=== PATIENT | female | born 1960 | race Caucasian/White ===

== ENCOUNTER 2017-06-05 19:40 | Emergency (ER) | payer OTHER ==
[~2017-06-05] VITALS: Ht 167.6 cm; Wt 132.0 kg
[2017-06-05 20:06] VITALS: BP 168/82; PULSE 69; RESP 16; TEMP 98.1; O2SAT 96
[2017-06-05] MEDS ORDERED: DILT30TA PO (20:28)
[2017-06-05] MEDS ORDERED: ROSU1TAB6 PO (20:28)
[2017-06-05] MEDS ORDERED: LORA0.5T PO (20:28)
[2017-06-05] MEDS ORDERED: FENO54TA PO (20:28)
[2017-06-05] MEDS ORDERED: LOSA50TA PO (20:28)
[2017-06-05] MEDS ORDERED: ORPHENADRINE INJ 60 MG/2 ML AMP IM ONE (21:15)
[2017-06-05] MEDS ORDERED: ACETAMINOPHEN/HYDROcodone 325 MG/5 MG TAB PO ONE (21:15)
[2017-06-05] MEDS ORDERED: KETOROLAC TROMETHAMINE 60 MG/2 ML (IM) VIAL IM ONE (21:15)
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
[2017-06-05] MEDS ORDERED: IBUP1TAB7 PO (21:59)
[2017-06-05] MEDS ORDERED: CYCL10TA PO (21:59)
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
== END 2017-06-05 22:20 | disposition home or self-care (01) ==
LOC: PHEFT 19:40
DX: R07.89 Other chest pain (principal); M25.572 Pain in left ankle and joints of left foot; V43.52XA Car driver injured in collision with other type car in traffic accident, initial encounter
CPT/HCPCS: 71046; 73610; 96372; 99284; J1885; J2360